=== PATIENT | male | born 1995 | race Caucasian/White ===

== ENCOUNTER 2020-12-17 21:09 | Emergency (ER) | payer OTHER ==
[2020-12-17 21:24] VITALS: TEMP 99.2; BMI 19.2
[2020-12-17] MEDS ORDERED: IBUPROFEN 600 MG TABLET (FP) PO ONE ×2 (22:02→22:16)
[2020-12-17 23:31] VITALS: BP 128/76; PULSE 76
== END 2020-12-17 23:00 | disposition home or self-care (01) ==
LOC: JER 21:09
DX: M79.671 Pain in right foot (principal)
CPT/HCPCS: 99283-25